=== PATIENT | female | born 1960 | race Caucasian/White ===

== ENCOUNTER 2020-05-28 09:35 | Outpatient (CLI) | payer OTHER ==
[~2020-05-28 09:35] MED LIST: ALEVE220 M1 PO; CIPRO500 MG PO; COZAAR100 MG; JANUVIA50 MG; LANTUS SOLOSTAR3 ML; METFORMIN HCL1000 M1; ULTRACET PO
== END 2020-05-28 14:09 | disposition home or self-care (01) ==
LOC: NUCLEAR 09:35
PROVIDERS: ATTEND Internal Medicine Cardiovascular Disease
DX: I10 Essential (primary) hypertension (principal); J44.9 Chronic obstructive pulmonary disease, unspecified

== ENCOUNTER 2020-06-11 09:55 | Inpatient (IN) | payer OTHER ==
[~2020-06-11] VITALS: Ht 160 cm; Wt 107.5 kg
[2020-06-11] MEDS ORDERED: CYMBALTA60 MG (10:30)
[2020-06-11] MEDS ORDERED: HYDROCHLOROTHIA25 MG (10:30)
[2020-06-11] MEDS ORDERED: JANUMET XR 50-1 EAC1 (10:31)
[2020-06-11] MEDS ORDERED: CALAN SR120 MG PO (10:31)
[2020-06-11] MEDS ORDERED: SIMVASTATIN5 MG (10:32)
[2020-06-11] MEDS ORDERED: PRILOSEC OTC20 MG (10:32)
== END 2020-06-19 16:08 | disposition home health service (06) | DRG 603 ==
LOC: ER 09:55 → MEDI 16:07 → SEC-K 16:07 → MEDI 18:27
PROVIDERS: ADMIT Internal Medicine Cardiovascular Disease; ATTEND Internal Medicine Cardiovascular Disease
PROC: 0W9L00Z Drainage of Lower Back with Drainage Device, Open Approach (ICD-10-PCS; principal; 2020-06-13)
PROC: 8E0ZXY6 Isolation (ICD-10-PCS; 2020-06-13)
DX: L03.312 Cellulitis of back [any part except buttock and flank] (principal); L05.01 Pilonidal cyst with abscess; B95.61 Methicillin susceptible Staphylococcus aureus infection as the cause of diseases classified elsewhere; I10 Essential (primary) hypertension; K52.89 Other specified noninfective gastroenteritis and colitis; E11.9 Type 2 diabetes mellitus without complications; E66.09 Other obesity due to excess calories; M79.7 Fibromyalgia; Z20.828 Contact with and (suspected) exposure to other viral communicable diseases; Z79.4 Long term (current) use of insulin

== ENCOUNTER 2020-07-18 08:58 | Outpatient (CLI) | payer OTHER ==
[~2020-07-18 08:58] MED LIST changes: +CALAN SR120 MG PO; +CYMBALTA60 MG; +HYDROCHLOROTHIA25 MG; +JANUMET XR 50-1 EAC1; +PRILOSEC OTC20 MG; +SIMVASTATIN5 MG
== END 2020-07-18 09:14 | disposition home or self-care (01) ==
LOC: MRI 08:58
PROVIDERS: ATTEND Specialist
DX: L03.312 Cellulitis of back [any part except buttock and flank] (principal)
CPT/HCPCS: 72148

== ENCOUNTER → 2021-06-03 09:19 | Outpatient (CLI) | payer OTHER | END | disposition home or self-care (01) | LOC: NUCLEAR 09:00 | PROVIDERS: ATTEND Internal Medicine Cardiovascular Disease | DX: I10 Essential (primary) hypertension (principal); J44.9 Chronic obstructive pulmonary disease, unspecified ==